=== PATIENT | male | born 1960 | race Caucasian/White ===

== ENCOUNTER 2024-10-16 07:42 | Outpatient (REF) | payer BC, SELFPAY ==
--- NOTE | ~2024-10-16 | MR_ITS ---
CLINICAL HISTORY: RADICULOPATHY, NUMBNESS IN LEGS MR lumbar spine with and without gadolinium Comparison: None Findings: No plain films are available for comparison. Thus, for numbering purposes, 5 lumbar type vertebral bodies will be presumed. This should be confirmed with plain films prior to any lumbar spinal intervention. There is loss of normal lumbar lordosis. 3 mm of retrolisthesis of L1 on L2. 4 mm of retrolisthesis of L2 on L3 and L3 on L4. 8 mm of anterolisthesis of L4 on L5. 3 mm of retrolisthesis of L5 on S1. No acute fracture or pathologic bone lesion. Moderate reactive signal within the endplates adjacent to the L2-L3 and L5-S1 intervertebral discs. Mild reactive signal throughout the remaining lumbar and lower thoracic endplates. Cauda equina and conus medullaris within normal limits. Paraspinous musculature intact. L1-L2: Moderate disc height loss and desiccation. Mild diffuse disc bulge. Mild facet and ligamentum flavum hypertrophy. Mild canal stenosis. Mild bilateral foraminal stenosis. L2-L3:Moderate disc height loss and desiccation. Mild diffuse disc bulge with solid superimposed central protrusion. Mild bilateral facet hypertrophy. Mild epidural lipomatosis. Mild canal stenosis. Moderate bilateral foraminal stenosis. L3-L4:Moderate disc height loss and desiccation. Mild diffuse disc bulge. Mild facet and ligamentum flavum hypertrophy. Mild canal stenosis. Moderate to severe right and severe left foraminal stenosis with [id number]-right L3 nerve root compression. L4-L5: Moderate disc height loss and desiccation. Moderate diffuse disc bulge. Moderate facet and ligamentum flavum hypertrophy. Severe canal stenosis. Severe right and moderate left foraminal stenosis. Right L4 nerve root compression. L5-S1:Moderate disc height loss and desiccation. Mild diffuse disc bulge/osteophyte. Mild bilateral facet hypertrophy. Mild canal stenosis. Moderate bilateral foraminal stenosis IMPRESSION: 1. Plain film correlation is recommended for numbering purposes prior to any lumbar spinal intervention. 2. Multilevel degenerative disc and facet disease, as well as ligamentum flavum hypertrophy. 3. Multilevel canal stenoses, worst at L4-L5 where there is severe canal stenosis. 4. Multilevel foraminal stenoses worst at L3-L4 and L4-L5 where there is associated intraforaminal nerve root compression. Correlation with clinical symptoms is recommended to assess relevance of these findings. This document has been electronically signed by: Jose Antonio Tam MD on 10/16/2024 14:57:43
--- OUTSIDE RECORDS SUMMARY | 2024-10-16 07:49 | XMS_ITS | Clinical Summary ---
Author Organization [facility] [place] [address] Care Team Providers Care Software Developer Mid Level Name Role Phone Jaylyn Argueta MD Primary Care Provider Allergies Active Allergy Reactions Criticality Noted Date Comments Pollen Extracts 06/30/2021 Medications Medication Sig Dispensed Refills Start Date End Date Status amLODIPine (NORVASC) 5 mg Tablet Take 5 mg by mouth daily. Active fish oil-omega-3 fatty acids 1,000 mg Capsule Take 2 g by mouth daily. Active montelukast (SINGULAIR) 10 mg Tablet Take 10 mg by mouth nightly. Active nitroGLYcerin (NITROSTAT) 0.4 mg Tablet, Sublingual Place 0.4 mg under the tongue every 5 minutes as needed for Chest pain. Active pravastatin (PRAVACHOL) 80 mg Tablet Take 80 mg by mouth daily. Active cholecalciferol, Vitamin D3, 1,000 unit Capsule Take 1,000 Units by mouth. Active fluticasone propionate (Flonase) 50 mcg/actuation [place], Suspension 09/20/2012 Active magnesium oxide (Mag-Ox) 400 mg (241.3 mg magnesium) Tablet Take 400 mg by mouth daily. 05/25/2023 Active tamsulosin (Flomax) 0.4 mg capsule Take 0.4 mg by mouth daily. 05/25/2023 Active valsartan (Diovan) 160 mg tablet Take 160 mg by mouth daily. 05/09/2023 Active ciclopirox (PENLAC) 8 % Solution Apply topically nightly. 05/25/2023 Active budesonide-formoteroL (Symbicort) 160-4.5 mcg/actuation HFA Aerosol InhalerIndications:Mod erate persistent asthma without complication Inhale 2 puffs into the lungs 2 times daily. 3 each 3 09/15/2023 Active cetirizine (ZyrTEC) 10 mg tablet Take 10 mg by mouth daily. Active multivitamin with minerals (One-A-Day) Tablet Take 1 tablet by mouth daily. Active budesonide-glycopyrrol ate-formoterol (Breztri Aerosphere) 160-9-4.8 mcg/actuation inhaler (HFA)Indications:Moder ate persistent asthma without complication Inhale 2 puffs into the lungs 2 times daily. 32.1 g 3 06/24/2024 Active Ventolin HFA 90 mcg/actuation inhaler (HFA)Indications:Moder ate persistent asthma without complication Inhale 2 puffs into the lungs every 4 hours as needed for Wheezing. 1 each 1 06/24/2024 Active Active Problems Problem Noted Date Diagnosed Date Bursitis of knee 05/13/2022 Chest pain 05/13/2022 Alcohol dependence in remission 05/13/2022 Chronic low back pain 05/13/2022 Dermatophytosis 05/13/2022 Pain of foot 05/13/2022 Mixed hypercholesterolemia and hypertriglyceride bridget 05/13/2022 Immunization due 05/13/2022 Physical exam 05/13/2022 Multiple actinic keratoses 05/13/2022 Squamous cell carcinoma of skin 05/13/2022 Colon cancer screening 05/13/2022 Adult general medical exam 05/13/2022 Left shoulder pain 05/13/2022 Shoulder weakness 05/13/2022 Vitamin D deficiency 05/13/2022 Incomplete rotator cuff tear or rupture of left shoulder, not specified as traumatic 05/13/2022 Chronic cough 05/13/2022 Assessment & Plan (02/14/2023 3:13 PM EDT): I think part of this is reflux Recommend GI work up. Will defer to PCP Daytime sleepiness 05/13/2022 Asthma 09/20/2012 Overview (02/17/2023): His IgE is slightly elevated, but not much. He has significant allergies to cat epithelium, dog epithelium, mites, and ragweed. Assessment & Plan (06/24/2024 3:38 PM EDT): He feels well-controlled on Symbicort but still has daily cough - tried omeprazole with no change. Uses Flonase. Tried Trelegy and breathing was better on Symbicort. We will try Breztri as the components are similar to Symbicort but he may see improvement with additional LAMA Follow up in 1 year. Assessment & Plan (06/01/2023 3:33 PM EDT): Well-controlled on ICS/LABA therapy Continue Symbicort, 2 puffs twice daily, using a spacer and rinsing after use Continue albuterol/Symbicort as needed for rescue treatment every 4 hours Follow up in 1 year Assessment & Plan (02/14/2023 3:18 PM EDT): PFT from April showed mild obstructive lung disease. He is on maximal inhaler therapy. He thinks he was doing better on Symbicort I will switch him back to Symbicort and stop trelegy Will send aeroallergen Will try him on 5 day prednisone to see if it helps. CXR today Assessment & Plan (09/19/2022 3:18 PM EST): His PFT is consistent more with asthma than COPD, given the normal spirometry. I think he needs addition of LAMA I will stop symbiocrt Start trelegy continue singulair Continue albuterol as needed as well Inhaler teaching done Essential hypertension Encounters Date Type Department Care Team Description 09/02/2024 Interpretation Only [address] [id number] Jaylyn Argueta MD Unspecified mononeuropathy of right lower limb; Unspecified mononeuropathy of right lower limb from Last 3 Months Immunizations Name Administration Dates Next Due Covid-19 Monovalent (Moderna Spikevax) 6mo-5yrs (2646-5212) 01/06/2022,08/14/2021,12/19/2020,2020 Influenza Adjuvanted (FluAd) Trivalent, PF 65yrs+ 05/29/2020,06/14/2019 Influenza Unspecified Formulation 06/27/2017,02/2013 Tdap (Adacel, Boostrix) 03/16/2016 Zoster Recombinant (ShingRix) 02/18/2022 Social History Tobacco Use Types Packs/Day Years Used Date Smoking Tobacco: Never Smokeless Tobacco: Never Tobacco Cessation:Counseling Given: Not Answered Sex and Gender Information Value Date Recorded Sex Assigned at Not on file Gender Identity Not on file Sexual Orientation Not on file Last Filed Vital Signs Vital Sign Reading Time Taken Comments Blood Pressure 102/60 06/24/2024 2:54 PM EDT Pulse 81 06/24/2024 2:54 PM EDT Temperature 36.5 ??C (97.7 ??F) 12/21/2018 4:40 PM ED T Respiratory Rate 18 12/21/2018 4:40 PM EDT Oxygen Saturation 97% 06/24/2024 2:54 PM EDT Inhaled Oxygen Concentration - - Weight 77.1 kg (170 lb) 06/24/2024 2:54 PM EDT Height 172.7 cm (5' 8 ) 05/24/2022 12:11 PM EDT Body Mass Index 25.85 05/24/2022 12:11 PM EDT Plan of Treatment Health Maintenance Due Date Last Done Comments CT Colonography 1962 Colonoscopy 1962 Colorectal Cancer Screening 1962 FIT DNA 1962 FIT 1962 Sigmoidoscopy (10 year) with FIT yearly 1962 Sigmoidoscopy 1962 HIV screen 1980 Hepatitis C Screening 1980 Pneumoccocal Vaccine: 50+ (1 of 2 - PCV) 1981 Diabetes Screening (HgbA1C o r Glucose) 2002 Advance Directive 2017 Zoster vaccine (2 of 2) 04/15/2022 02/18/2022 RSV Vaccine (1 - Risk 60-74 years 1-dose series) 2022 Covid-19 Vaccine (1 - 2023-2 5 season) 2024 01/06/2022, 08/14/2021, 12/19/2020, Additional history exists Influenza (Flu) vaccine (1 o f 1 - Influenza standard series) 04/28/2024 05/29/2020, 06/14/2019, 06/27/2017, Additional history exists Tetanus/Diphtheria/Pertussis Vaccines (2 - Td or Tdap) 03/16/2026 03/16/2016 Procedures Procedure Name Priority Date/Time Associated Diagnosis Comments XR LUMBAR SPINE MIN 4 VIEW Routine 09/02/2024 4:07 PM EST Unspecified mononeuropathy of right lower limb from Last 3 Months Results * XR Lumbar Spine Min 4 view (09/02/2024 4:07 PM EST) PT CLASS O RAD ADMITDTTM [id number] RAD PT [facility] MD INFO [id number]^Kaufm an^Jaylyn RAD EXAM DESC [id number]^XR Spine Lumbar 5 Views^RIS [facility] WORKSTATION ID [id number] [facility] Anatomical Region Laterality Modality L-spine N/A Radiographic Mae ging 09/02/2024 4:07 PM EST Impressions 09/02/2024 4:54 PM EST Degenerative changes of the lumbar spine as above. Thank you for letting us participate in the care of this patient. ??If you are a health care provider and have any questions regarding this report, please contact the number below. ??For patients who have questions please contact the health acute care assistant that requested your imaging first. ? Narrative 09/02/2024 4:54 PM EST EXAMINATION: XR Spine Lumbar 5 Views CLINICAL HISTORY: neuropahty of the right foot. looking for impingment;G57.91 Unspecified mononeuropathy of right lower limb TECHNIQUE: 5 views of lumbar spine. COMPARISON: None FINDINGS: There is no evidence of acute fracture. Moderate degenerative narrowing of intervertebral disc spaces at all visualized lumbar levels is identified. There is associated diffuse marginal osteophyte formation. Moderate to severe facet joints arthropathy is seen. This is most pronounced at the inferior lumbar spine and there is associated mild spondylolisthesis L4 on L5. Minimal posterior subluxation L1 on L2 and L2 on L3 is also seen. Procedure Note Scott Yadav MD - 09/02/2024 EXAMINATION: XR Spine Lumbar 5 Views CLINICAL HISTORY: neuropahty of the right foot. looking forimpingment;G57.91 Unspecified mononeuropathy of right lower limb TECHNIQUE: 5 views of lumbar spine. COMPARISON: None FINDINGS: There is no evidence of acute fracture. Moderate degenerative narrowingof intervertebral disc spaces at all visualized lumbar levels is identified.There is associated diffuse marginal osteophyte formation. Moderate to severefacet joints arthropathy is seen. This is most pronounced at the inferior lumbarspine and there is associated mild spondylolisthesis L4 on L5. Minimalposterior subluxation L1 on L2 and L2 on L3 is also seen. IMPRESSION Degenerative changes of the lumbar spine as above. Thank you for letting us participate in the care of this patient. If youare a health care provider and have any questions regarding this report,please contact the number below. For patients who have questions please contactthe health acute care assistant that requested your imaging first. Jaylyn Argueta MD IMG DX ORDERABLES from Last 3 Months Advance Directives * Full Code (Latest Code Status on File) Date Activated Date Inactivated Comments 12/21/2018 2:46 PM Question Answer Comments Does patient have capacity to make decision: Yes * Full Code Date Activated Date Inactivated Comments 12/21/2018 12:31 PM 12/21/2018 2:46 PM Question Answer Comments Does patient have capacity to make decision: Yes Care Teams Software Developer Mid Level Relationship Specialty Start Date End Date Jaylyn Argueta MD [address] [address] PCP - General Family Medicine 06/01/23
--- OUTSIDE RECORDS SUMMARY | 2024-10-16 07:49 | XMS_ITS | Patient Health Record ---
Author Organization [facility] Address [address] [place] [id number] Support Name Relationship Address Phone Kwaku De La Garza Guarantor Unknown [phone] Reason For Referral No Information Problems Problem Type SNOMED Code ICD Code Onset Dates Problem Status W/U Status Risk Notes Problem Allergic rhinitis caused by pollen (disorder) (25463537) Allergic rhinitis due to pollen (477.0) 9 Active confirmed Problem Allergic rhinitis (80862232) Allergic rhinitis, cause unspecified (477.9) 9 Active confirmed Problem Benign essential hypertension (6003033) Essential hypertension, benign (401.1) 9 Active confirmed Problem Chronic rhinitis (28068648) Chronic rhinitis (472.0) 9 Active confirmed Problem Allergic asthma without status asthmaticus (disorder) (13458317) Extrinsic asthma, unspecified (493.00) 9 Active confirmed Problem Intrinsic asthma (293945356) Intrinsic asthma, unspecified (493.10) 9 Active confirmed Problem Exacerbation of asthma (439154015) Asthma, unspecified, with (acute) exacerbation (493.92) 9 Active confirmed Plan Of Treatment No Information
== END 2024-10-16 07:43 | disposition home or self-care (01) ==
LOC: HO.MRI 07:42
PROVIDERS: Visit Provider Internal Medicine
DX: M54.16 Radiculopathy, lumbar region (principal); R20.0 Anesthesia of skin
CPT/HCPCS: 72148

== ENCOUNTER → 2024-10-16 08:02 | Outpatient (BNV) | payer BC, SELFPAY | PROVIDERS: Visit Provider Radiology Diagnostic Radiology | DX: M51.369 Other intervertebral disc degeneration, lumbar region without mention of lumbar back pain or lower extremity pain (principal); M48.061 Spinal stenosis, lumbar region without neurogenic claudication | CPT/HCPCS: 72148 ==